=== PATIENT | male | born 1970 | race Caucasian/White ===

== ENCOUNTER 2024-08-26 08:08 | Outpatient (RCR) | payer BC, SELFPAY ==
--- NOTE | 2024-08-26 08:09 | OPREHPOC ---
Outpatient Therapy Plan of Care This is a Multidisciplinary Plan of Care that may contain components documented by all disciplines (PT, OT, and ST.) PT Problem 1 PT Problem #1 Knowledge Deficit PT Goal 1 Goal / Goal Update The patient will be independent in a home exercise program. Target Visit 3 PT Problem 2 PT Problem #2 Pain PT Goal 1 Goal / Goal Update The patient will report no greater than 3/10 right knee pain with stair ascending/descending. Target Visit 8 PT Problem 3 PT Problem #3 Impaired Functional Mobility PT Goal 1 Goal / Goal Update The patient will demonstrate 10% or less self perceived disability per the LEFS questionnaire. Target Visit 8 PT Problem 4 PT Problem #4 Impaired Strength PT Goal 1 Goal / Goal Update The patient will demonstrate 5/5 right knee and hip strength to support the knee for job tasks. Target Visit 8
--- NOTE | 2024-08-26 08:09 | PTOPEVAL1 ---
Assessment and note entered by Maritza Hansen, PT Evaluation Information Assessment Status Evaluation ICD-10 Condition Codes (PT) Pain in right knee M25.561 Other ICD-10 Condition Codes ( M17.11 PT) Onset 03/06/24 Subjective Information Gurjit Sethi reports he had a right knee surgery for a meniscus tear in 2001. He did well for a couple years but started having pain again in March 2024. He notes the pain has become more constant and he has to take stairs one at a time. He went to see his previous surgeon, Dr. Hardwick, and had new x-rays performed. He was told he has bone on bone on the inner side of the knee. He had a cortisone injection and was prescribed prednisone which has helped his pain. He has gained weight because it hurts to move. 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 He also has increased pain with standing after prolonged sitting, walking on uneven ground, and squatting. Reported Pain Level Pain Score 2: Self Report Assessment PT Clinical Summary Gurjit Sethi presents with right knee pain and has been diagnosed with osteoarthritis. He has difficulty standing after prolonged sitting, walking on uneven terrrain, going down stairs, and climbing ladders. 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 He objectively demonstrates decreased and painful right knee AROM, impaired gait, decreased knee and hip strength, decreased gastrocnemius flexibility , and decreased functional mobility. He will benefit from skilled PT to address these limitations. Plan of Care Interventions Electrical Stimulation,Gait Training,Hot Pack/Cold Pack,Manual Therapy,Neuro Re-education,Patient/ Caregiver Education,Therapeutic Activities, Therapeutic Exercise PT Services Indicated Yes Treatment Frequency and 2 times a week for 8 visits Duration These treatments will address the objective and functional deficits as defined above. The patient will be advanced safely and appropriately in order for the patient to progress towards his/her prior level of function. Additional exercises will be introduced and as well as a comprehensive home exercise program upon discharge, if needed, to ensure carryover of functional gains achieved in the clinic. This treatment plan has been reviewed and agreement upon by the patient.
--- NOTE | 2024-09-03 09:41 | PCPTNOTE ---
Patient called & cancelled scheduled appointment this date due to unable to make it today. He is scheduled next week. -Maritza Hansen, PT
--- NOTE | 2024-09-21 07:59 | OPREHPOC ---
Outpatient Therapy Plan of Care This is a Multidisciplinary Plan of Care that may contain components documented by all disciplines (PT, OT, and ST.) PT Problem 1 PT Problem #1 Knowledge Deficit PT Goal 1 Goal / Goal Update The patient will be independent in a home exercise program. Target Visit 3 Progress Met PT Problem 2 PT Problem #2 Pain PT Goal 1 Goal / Goal Update The patient will report no greater than 3/10 right knee pain with stair ascending/descending. Target Visit 8 Progress Met PT Problem 3 PT Problem #3 Impaired Functional Mobility PT Goal 1 Goal / Goal Update The patient will demonstrate 10% or less self perceived disability per the LEFS questionnaire. Target Visit 8 Progress Not Met PT Problem 4 PT Problem #4 Impaired Strength PT Goal 1 Goal / Goal Update The patient will demonstrate 5/5 right knee and hip strength to support the knee for job tasks. Target Visit 8 Progress Met
--- NOTE | 2024-09-21 07:59 | PTOPDC ---
Assessment and note entered by Monique Leavitt, PT Evaluation Information Assessment Status Discharge ICD-10 Condition Codes (PT) Pain in right knee M25.561 Other ICD-10 Condition Codes ( M17.11 PT) Onset 03/06/24 Subjective Information Pt reports his knee is feeling improved after PT and getting a cortisone shot last week. Reports his pain is about a 1/10. He still experiences some pain and popping with exercise/activity but overall the pain is not as bad. Reported Pain Level Pain Score 1: Self Report Assessment PT Clinical Summary Mr. Sethi has attended 8 total skilled PT visits addressing R knee pain. Since beginning therapy his pain is reduced and he has made good improvements in his lower extremity strength. He has been independent with his HEP, has met nearly all therapeutic goals set for him and is appropriate for discharge this date. Plan of Care PT Services Indicated No
== END 2024-09-21 20:00 | disposition home or self-care (01) ==
LOC: CHSPT 08:08
PROVIDERS: Visit Provider Orthopaedic Surgery
DX: M17.11 Unilateral primary osteoarthritis, right knee (principal)
CPT/HCPCS: 97014; 97110; 97112; 97161; 97530; G0283